=== PATIENT | female | born 2000 | race Caucasian/White ===

== ENCOUNTER 2021-12-16 00:06 | Emergency (ER) | payer BC ==
[~2021-12-16] VITALS: Ht 157.5 cm; Wt 49.9 kg
--- NOTE | 2021-12-16 00:30 | NUR ---
PT HERE C/O DYSURIA WITH FEVER AND LOWER BACK AND LOWER ABD PAIN X3 DAYS. PT DENIES N/V/D. DENIES OTHER SYMPTOMS. PMH:DENIES PT AAOX4, NO SOB NOTED AND NOT IN ANY DISTRESS AT THIS TIME
[2021-12-16 00:39] LABS: BILIRUBIN,URINE 2+ (NEGATIVE); BLOOD, URINE 1+ (NEGATIVE); CLARITY/URINE CLEAR (CLEAR); COLOR,URINE YELLOW (YELLOW); GLUCOSE,URINE NEGATIVE (NEGATIVE); KETONES,URINE TRACE (NEGATIVE); LEUKOCYTE ESTERASE ,URINE 1+ (NEGATIVE); NITRITE, URINE NEGATIVE (NEGATIVE); PH,URINE 5.5 (5.0-8.0); PROTEIN URINE 2+ (NEGATIVE)
--- NOTE | 2021-12-16 00:50 | NUR ---
PT IS AA&OX4. AFEBRILE. NAD, C/0 7/10 FLANK PAIN. AMBULATORY W/ STEADY GAIT. SAFE & HAZARD FREE ENVIRONMENT PROVIDED. URINE COLLECTED & SENT TO LAB. WILL CON'T TO MONITOR.
[2021-12-16] MEDS ORDERED: NITR-85 PO (00:58)
[2021-12-16] MEDS ORDERED: NAPR-1172 PO (00:58)
[2021-12-16 00:59] LABS: BACTERIA,URINE MODERATE /HPF (None Seen); WBC,URINE 20-50 /HPF (0-3)
[2021-12-16 01:00] LABS: MUCUS,URINE 1+ /LPF (None Seen)
--- NOTE | 2021-12-16 01:05 | NUR ---
Patient given written and verbal discharge instructions and verbalizes understanding. ER MD DR. GODINEZ discussed with patient the results and treatment provided. Patient in stable condition. ID arm band removed. IV catheter removed intact and dressing applied, no active bleeding. Rx of NAPROXEN & MACROBID given. Patient educated on pain management and to follow up with PMD. Pain Scale 0/10. Opportunity for questions provided and answered. Medication side effect fact sheet provided.
== END 2021-12-16 01:03 | disposition home or self-care (01) ==
LOC: SED 00:06
DX: N39.0 Urinary tract infection, site not specified (principal); R10.9 Unspecified abdominal pain; R30.9 Painful micturition, unspecified; Z79.899 Other long term (current) drug therapy
CPT/HCPCS: 81000; 87086; 99283

== ENCOUNTER 2023-04-06 20:52 | Emergency (ER) | payer BC ==
[~2023-04-06] VITALS: Ht 157.5 cm; Wt 49.9 kg
[~2023-04-06 20:52] MED LIST: NAPR-1172 PO; NITR-85 PO
[2023-04-06 21:46] VITALS: BP_SYST 133; PULSE 138; RESP 16; TEMP 98.3; O2SAT 95
[2023-04-06 22:20] VITALS: BP_SYST 133; PULSE 138; RESP 16; TEMP 98.3; O2SAT 95
[2023-04-06 23:33] LABS: BILIRUBIN,URINE 1+ (NEGATIVE); BLOOD, URINE NEGATIVE (NEGATIVE); CLARITY/URINE SL CLOUDY (CLEAR); COLOR,URINE YELLOW (YELLOW); GLUCOSE,URINE NEGATIVE (NEGATIVE); KETONES,URINE TRACE (NEGATIVE); LEUKOCYTE ESTERASE ,URINE 1+ (NEGATIVE); NITRITE, URINE POSITIVE (NEGATIVE); PROTEIN URINE 1+ (NEGATIVE); UROBILINOGEN,URINE 0.2 (0.2-1.0)
[2023-04-07 00:15] LABS: BACTERIA,URINE MANY /HPF (None Seen); WBC,URINE >100 /HPF (0-3)
[2023-04-07] MEDS ORDERED: cefTRIAXone 1 GM in LIDOCAINE 1%, 20 ML MDV 2.1 ML IM ONE (01:15)
[2023-04-07] MEDS ORDERED: KETOROLAC TROMETHAMINE 60 MG/2 ML VIAL IM ONE (01:15)
[2023-04-07] MEDS ORDERED: NAPR-690 PO (01:33)
[2023-04-07] MEDS ORDERED: CIPR500T5 PO (01:33)
== END 2023-04-07 01:48 | disposition home or self-care (01) ==
LOC: SED 20:52
DX: N12 Tubulo-interstitial nephritis, not specified as acute or chronic (principal); R10.9 Unspecified abdominal pain; Z79.899 Other long term (current) drug therapy
CPT/HCPCS: 99284; 81001; 87086; 81025; 81000; 96372; 81015; J0696; J1885; J2001